=== PATIENT | female | born 1965 | race Hispanic/Latino ===

== ENCOUNTER 2018-10-09 13:04 | Inpatient (IN) | payer OTHER ==
[2018-10-09 15:27] LABS: BASO # 0.1 K/uL (0.0-0.2); BASO % 0.7 % (0.0-2.0); EOS # 0.2 K/uL (0.0-0.7); EOS % 1.6 % (0.0-4.0); HEMOGLOBIN 11.6 g/dL (12.0-16.0); LYMPH # 1.8 K/uL (1.0-4.3); LYMPH % 17.9 % (20.0-40.0); MEAN CELL VOLUME 85.5 fl (81.0-99.0); MEAN CORPUSCULAR HEMOGLOBIN 28.7 pg (27.0-31.0); MEAN CORPUSCULAR HGB CONC 33.5 g/dL (33.0-37.0); MEAN PLATELET VOLUME 11.5 fl (7.2-11.7); MONO # 0.9 K/uL (0.0-0.8); MONO % 8.9 % (0.0-10.0); NEUT # 7.2 K/uL (1.8-7.0); NEUT % 70.9 % (50.0-75.0); RBC 4.06 Mil/uL (3.80-5.20); RED CELL DISTRIBUTION WIDTH 12.6 % (11.5-14.5); WHITE BLOOD COUNT 10.2 K/uL (4.8-10.8)
[2018-10-09 15:32] LABS: BLOOD UREA NITROGEN 11 mg/dl (7-17); CALCIUM 8.8 mg/dL (8.4-10.2); GFR NON-AFRICAN AMERICAN > 60
--- NOTE | 2018-10-09 15:38 | ED PDOC ---
HPI: SOB/CHF/COPD <Bhumi Rae A - Last Filed: 10/09/18 15:38> <Alexandra Falcon - Last Filed: 10/09/18 18:54> Time Seen by Provider: 10/09/18 14:09 Chief Complaint (Nursing): Shortness Of Breath Past Medical History Vital Signs: Last Vital Signs Temp 98.5 F 10/09/18 13:14 Pulse 102 H 10/09/18 13:14 Resp 16 10/09/18 13:59 BP 111/73 10/09/18 13:14 Pulse Ox 98 10/09/18 13:59 <Bhumi Rae A - Last Filed: 10/09/18 15:38> Vital Signs: Last Vital Signs Temp 98.5 F 10/09/18 13:14 Pulse 102 H 10/09/18 13:14 Resp 16 10/09/18 13:59 BP 111/73 10/09/18 13:14 Pulse Ox 98 10/09/18 15:38 <Alexandra Falcon - Last Filed: 10/09/18 18:54> - Allergies Allergies/Adverse Reactions: Allergies Allergy/AdvReac Type Severity Reaction Status Date / Time chocolate flavor Allergy URTICARIA Verified 10/09/18 13:14 pineapple Allergy URTICARIA Verified 10/09/18 13:14 strawberry Allergy URTICARIA Verified 10/09/18 13:14 - Laboratory Results Result Diagrams: 10/09/18 15:11 10/09/18 15:11 - ECG O2 Sat by Pulse Oximetry: 98 <Bhumi Rae A - Last Filed: 10/09/18 15:38> - Laboratory Results Result Diagrams: 10/09/18 15:11 10/09/18 15:11 <Alexandra Falcon - Last Filed: 10/09/18 18:54> Medical Decision Making Medical Decision Making: Name: MADY PAINTER Exam Date: Oct 09, 2018 5:30:02 PM EST Modality Type: CT Description: CTA CHEST FOR PE Gender: F Laterality: Not applicable : 63 Referring Physician: Emergency Room direct number EXAM: CTA Chest with Intravenous Contrast for Pulmonary Embolism CLINICAL HISTORY: SOB difficulty breathing elevated d-d-debra TECHNIQUE: Axial CTA images of the chest with intravenous contrast using a pulmonary embolism protocol. Reconstructed images were created and reviewed. 316.18 mGy-cm CONTRAST: With; [id number] 90ML was administered without incident. COMPARISON: None provided. FINDINGS: PULMONARY ARTERIES No evidence of central or segmental pulmonary embolism is seen. AORTA There is no evidence for aneurysm or dissection of the thoracic aorta. LUNGS There are multiple bands of opacity within the mid and lower lungs bilaterally, consistent with atelectasis or scar. There is no definite sign of pneumonia. PLEURAL SPACES No pneumothorax evident. there is a small left pleural effusion and there is a minimal right pleural effusion HEART there is a moderate sized pericardial effusion. LYMPH NODES No lymphadenopathy is evident. BONES No focal osseous abnormality or acute fracture. UPPER ABDOMEN there are calcifications within the posterior liver dome that may be due to old granulomatous disease. IMPRESSION: 1. No definite sign of pulmonary embolism 2. Moderate sized pericardial effusion 3. Small left pleural effusion and minimal right pleural effusion 4. Multifocal pulmonary opacities, consistent with atelectasis or scar Electronically signed on Oct 09, 2018 6:10:19 PM EST by: Nolan Polanco M.D. Certified by [employer] Trained MRI Subspecialist <Alexandra aFlcon - Last Filed: 10/09/18 18:54> Disposition <Bhumi Rae - Last Filed: 10/09/18 15:38> - Disposition Disposition: Against Medical Advice Disposition Time: 18:00 <Alexandra Falcon - Last Filed: 10/09/18 18:54> - Clinical Impression Clinical Impression: Pericardial effusion, Pleural effusion, bilateral - Disposition Condition: UNKNOWN Additional Instructions: RETURN TO ER IMMEDIATELY FOR FURTHER MANAGEMENT Instructions: Leaving Against Medical Advice
[2018-10-09 15:42] LABS: B-TYPE NATRIURETIC PEPTIDE 138 pg/ml (0-900)
[2018-10-09] MEDS ORDERED: Sodium Chloride 0.9% 50 ML IV ONE (17:18)
[2018-10-09] MEDS ORDERED: Iodixanol 320 MG/ML 100 ML BOTTLE IV ONE (17:18)
--- NOTE | 2018-10-09 18:07 | RAD ---
Date of service: 10/09/2018 HISTORY: chest pain COMPARISON: No prior. TECHNIQUE: Chest PA and lateral FINDINGS: LUNGS: Linear scar/atelectasis right lower lobe. No acute infiltrate. PLEURA: No significant pleural effusion identified. No pneumothorax apparent. CARDIOVASCULAR: No aortic atherosclerotic calcification present. Normal cardiac size. No pulmonary vascular congestion. OSSEOUS STRUCTURES: No significant abnormalities. VISUALIZED UPPER ABDOMEN: Normal. OTHER FINDINGS: None. IMPRESSION: Right lower lobe linear scar/atelectasis. Otherwise unremarkable.
--- NOTE | 2018-10-09 20:24 | ED PDOC ---
- Laboratory Results Result Diagrams: 10/09/18 15:11 10/09/18 15:11 - ECG O2 Sat by Pulse Oximetry: 98 Disposition - Clinical Impression Clinical Impression: Pericardial effusion, Pleural effusion, bilateral - POA Present On Arrival: None - Disposition Disposition: Admitted as In-Patient Disposition Time: 20:00 Condition: FAIR
[2018-10-10 06:30] LABS: URIC ACID 3.8 mg/Dl (2.2-7.5)
--- NOTE | 2018-10-10 09:01 | CP.PCM.CON ---
History of Present Illness - History of Present Illness History of Present Illness: 53 YR OLD FEMALE WITH AN UNREMARKABLE PAST MEDICAL HISTORY WHO IS ADMITTED BECAUSE OF PROGRESSIVELY WORSENING SHORTNESS OF BREATH AND CHEST TIGHTNESS X SEVERAL DAYS,WORSE ON THE DAY OF ADMISSION.SHE INDICATES THAT SHE HAD SYMPTOMS OF URI ON AND OFF FOR SEVERAL WEEKS BUT IMPROVED WITHOUT THERAPY,ONLY TO WORSEN YESTERDAY.NO FEVER/CHILLS.SHE FEELS BETTER TODAY. CT SCAN OF CHEST-MODERATE PERICARDIAL EFFUSION AND ATELECTASIS WITH SMALL PLEURAL EFFUSION NON-SMOKER/DRUGS/ETOH USE. NO HX OF TB/TB EXPOSURE NO HX OF CHEMICAL EXPOSURE Past Patient History - Past Social History Smoking Status: Never Smoked - PSYCHIATRIC Hx Substance Use: No Meds Allergies/Adverse Reactions: Allergies Allergy/AdvReac Type Severity Reaction Status Date / Time chocolate flavor Allergy URTICARIA Verified 10/09/18 13:14 pineapple Allergy URTICARIA Verified 10/09/18 13:14 strawberry Allergy URTICARIA Verified 10/09/18 13:14 - Medications Medications: Current Medications Ketorolac Tromethamine (Toradol) 15 mg IVP Q6 PRN PRN Reason: Pain, moderate (4-7) Last Admin: 10/10/18 06:30 Dose: 15 mg Physical Exam - Constitutional Appears: No Acute Distress - Head Exam Head Exam: ATRAUMATIC, NORMAL INSPECTION, NORMOCEPHALIC - Eye Exam Eye Exam: EOMI, Normal appearance, PERRL Pupil Exam: NORMAL ACCOMODATION, PERRL - ENT Exam ENT Exam: Mucous Membranes Moist, Normal Exam - Neck Exam Neck exam: Positive for: Normal Inspection - Respiratory Exam Respiratory Exam: Clear to Auscultation Bilateral, NORMAL BREATHING PATTERN - Cardiovascular Exam Cardiovascular Exam: REGULAR RHYTHM - GI/Abdominal Exam GI & Abdominal Exam: Normal Bowel Sounds, Soft. absent: Tenderness - Rectal Exam Rectal Exam: NORMAL INSPECTION - Extremities Exam Extremities exam: Positive for: normal inspection - Back Exam Back exam: NORMAL INSPECTION - Neurological Exam Neurological exam: Alert, CN II-XII Intact, Normal Gait, Oriented x3, Reflexes Normal - Psychiatric Exam Psychiatric exam: Normal Affect, Normal Mood - Skin Skin Exam: Dry, Intact, Normal Color, Warm Results - Vital Signs Recent Vital Signs: Last Vital Signs Temp 99.9 F H 10/10/18 08:23 Pulse 103 H 10/10/18 08:23 Resp 18 10/10/18 08:23 BP 103/61 10/10/18 08:23 Pulse Ox 97 10/10/18 08:23 - Labs Result Diagrams: 10/09/18 15:11 10/09/18 15:11 Labs: Laboratory Results - last 24 hr 10/09/18 10/09/18 10/09/18 15:11 15:11 15:55 WBC 10.2 RBC 4.06 Hgb 11.6 L Hct 34.7 MCV 85.5 MCH 28.7 MCHC 33.5 RDW 12.6 Plt Count 317 MPV 11.5 Neut % (Auto) 70.9 Lymph % (Auto) 17.9 L [place] % (Auto) 8.9 Eos % (Auto) 1.6 Baso % (Auto) 0.7 Neut # (Auto) 7.2 H Lymph # (Auto) 1.8 [place] # (Auto) 0.9 H Eos # (Auto) 0.2 Baso # (Auto) 0.1 ESR D-Dimer, Quantitative 4128 H Sodium 138 Potassium 4.0 Chloride 102 Carbon Dioxide 28 Anion Gap 12 BUN 11 Creatinine 0.6 L Est GFR ( Amer) > 60 Est GFR (Non-Af Amer) > 60 Random Glucose 115 H Uric Acid Calcium 8.8 Troponin I < 0.0120 NT-Pro-B Natriuret Pep 138 Alpha Fetoprotein Carcinoembryonic Ag TSH 3rd Generation 10/09/18 10/09/18 10/10/18 23:19 23:19 05:45 WBC RBC Hgb Hct MCV MCH MCHC RDW Plt Count MPV Neut % (Auto) Lymph % (Auto) Banner % (Auto) Eos % (Auto) Baso % (Auto) Neut # (Auto) Lymph # (Auto) [place] # (Auto) Eos # (Auto) Baso # (Auto) ESR 91 H 88 H D-Dimer, Quantitative Sodium Potassium Chloride Carbon Dioxide Anion Gap BUN Creatinine Est GFR ( Amer) Est GFR (Non-Af Amer) Random Glucose Uric Acid Calcium Troponin I < 0.0120 NT-Pro-B Natriuret Pep Alpha Fetoprotein Carcinoembryonic Ag TSH 3rd Generation 10/10/18 10/10/18 05:45 05:45 WBC RBC Hgb Hct MCV MCH MCHC RDW Plt Count MPV Neut % (Auto) Lymph % (Auto) [place]anner % (Auto) Eos % (Auto) Baso % (Auto) Neut # (Auto) Lymph # (Auto) [place]anner # (Auto) Eos # (Auto) Baso # (Auto) ESR D-Dimer, Quantitative Sodium Potassium Chloride Carbon Dioxide Anion Gap BUN Creatinine Est GFR ( Amer) Est GFR (Non-Af Amer) Random Glucose Uric Acid 3.8 Calcium Troponin I NT-Pro-B Natriuret Pep Alpha Fetoprotein 0.9 Carcinoembryonic Ag 1.0 TSH 3rd Generation 2.22 Assessment & Plan - Assessment and Plan (Free Text) Assessment: PERICARDIAL EFFUSION WITH PLEURAL REACTION PROBABLY DUE TO PERICARDITIS[?VIRAL]--R/O OTHER ETIOLOGIES Plan: SUGGEST CARDIOLOGY EVALUATION FOR APPROPRIATE RX - Date & Time Date: 10/10/18 Time: 09:04
--- NOTE | 2018-10-10 09:32 | CARD ---
APPROVED REPORT Date of service: 10/10/2018 EXAM: Two-dimensional and M-mode echocardiogram with Doppler and color Doppler. Other Information Quality : GoodRhythm : NSR INDICATION Pericardial Effusion Pleural Effusion 2D DIMENSIONS IVSd0.95 (0.7-1.1cm)LVDd4.02 (3.9-5.9cm) LVOT Diameter1.79 (1.8-2.4cm)PWd1.09 (0.7-1.1cm) IVSs1.37 (0.8-1.2cm)LVDs2.24 (2.5-4.0cm) FS (%) 44.3 %PWs1.49 (0.8-1.2cm) M-Mode DIMENSIONS Left Atrium (MM)4.74 (2.5-4.0cm)IVSd0.97 (0.7-1.1cm) Aortic Root2.15 (2.2-3.7cm)LVDd4.68 (4.0-5.6cm) Aortic Cusp Exc.1.59 (1.5-2.0cm)PWd0.74 (0.7-1.1cm) IVSs1.24 cmFS (%) 50 % LVDs2.35 (2.0-3.8cm)PWs1.56 cm Aortic Valve AoV Peak Sjwtmwtl187.4cm/sAoV VTI26.5cmAO Peak GR.7mmHg LVOT Peak Ampyxjvo705.9cm/sLVOT VTI20.69cmAO Mean GR.4mmHg JUDITH (VMAX)1.70jo1CMY (VTI)1.10cm2 Mitral Valve MV E Pdaocxam41.3cm/sMV DECEL QKBC208sbAF A Snjhwadx05.0cm/s MV QPQ44tiL/A ratio0.7MVA (PHT)6.78cm2 TDI Lateral E' Peak V8.72cm/sMedial E' Peak V10.02cm/sE/Lateral E'7.0 E/Medial E'6.1 LEFT VENTRICLE The left ventricle is normal size. There is normal left ventricular wall thickness. The left ventricular function is normal. LVEF is 60-65%. There is normal LV segmental wall motion. Transmitral Doppler flow pattern is Grade I-abnormal relaxation pattern. RIGHT VENTRICLE The right ventricle is normal size. No RV free wall compression seen durong diastole. The right ventricular systolic function is normal. ATRIA The left atrium size is normal. The right atrium size is normal. No RA free wall collapse seen during diastole. AORTIC VALVE The aortic valve is normal in structure. No aortic regurgitation is present. There is no aortic valvular stenosis. MITRAL VALVE The mitral valve is normal in structure. There is no evidence of mitral valve prolapse. There is no mitral valve stenosis. There is no mitral valve regurgitation noted. TRICUSPID VALVE The tricuspid valve is normal in structure. There is no tricuspid valve regurgitation noted. PULMONIC VALVE The pulmonary valve is normal in structure. There is no pulmonic valvular regurgitation. GREAT VESSELS The aortic root is normal in size. The IVC is normal in size and collapses >50% with inspiration. PERICARDIAL EFFUSION A Mild to moderate quantity of pericardial fluid was seen <Conclusion> The left ventricle is normal size. There is normal left ventricular wall thickness. There is normal LV segmental wall motion. The left ventricular function is normal. LVEF is 60-65%. Transmitral Doppler flow pattern is Grade I-abnormal relaxation pattern. No RV free wall compression seen durong diastole. The IVC is normal in size and collapses >50% with inspiration. A Mild to moderate quantity of pericardial fluid collection was seen No echocardiographic evidence of cardiac temponade seen Clinical correlation is strongly recommended.
--- NOTE | 2018-10-10 10:19 | CT ---
Date of service: 10/09/2018 PROCEDURE: CT Chest with contrast (Pulmonary Angiogram) HISTORY: shortness of breath elevated D-dimer COMPARISON: Chest radiographs from 10/09/2018. TECHNIQUE: Axial computed tomography images were obtained of the chest in the pulmonary arterial phase of enhancement. Coronal and sagittal reformatted images were created and reviewed. Intravenous contrast dose: 90 mL Visipaque 320 Radiation dose: Total exam DLP = 316.17 mGy-cm. This CT exam was performed using one or more of the following dose reduction techniques: Automated exposure control, adjustment of the mA and/or kV according to patient size, and/or use of iterative reconstruction technique. FINDINGS: PULMONARY ARTERIES: There are no filling defects in the pulmonary arteries to suggest acute pulmonary embolism. AORTA: No acute findings. No thoracic aortic aneurysm. No aortic atherosclerotic calcification or mural plaque present. LUNGS: The lungs are well inflated. There is multifocal subsegmental atelectasis in the left. No nodule, mass or pulmonary consolidation. PLEURAL SPACES: Small effusions, larger on the left no pneumothorax. There are calcified right basilar pleural plaques. HEART: Moderate cardiomegaly. Moderate significant pericardial effusion. LYMPH NODES: No pathologic mediastinal or hilar lymphadenopathy. BONES, CHEST WALL: Within normal limits for the patient's age. No fracture or destructive lesion OTHER FINDINGS: None. IMPRESSION: 1. No CTA evidence for acute pulmonary embolism. 2. Moderate pericardial effusion. 3. Small pleural effusions, larger on the left. A preliminary report was provided by [employer].
--- NOTE | 2018-10-10 10:35 | CP.PCM.CON ---
History of Present Illness - History of Present Illness History of Present Illness: tthis 54-year-old otherwise well female came to the emergency room on experiencing chest pain on taking a deep breath or movements of upper torso or turning in bed or bending down. This started couple of weeks back when she experienced sharp chest pain while walking in [facility] which gradually subsided. Patient has had vague symptoms such as URI for last couple of weeks which did not hamper her physical activities. Yesterday the chest discomfort returned and was quite pronounced and the patient came to the emergency room. The patient denies on repeated questioning if physical activities made her short of breath. She denies any orthopnea as well as. She was not on any medications except some pills that she to for weight loss 6 months back. There is no significant past or family history. There is no history of weight loss or rashes or arthritis. Physical examination shows a middle aged pleasant female who is quite anxious and being hospitalized. She can lie down flat and can carry on a conversation. She was afebrile with a pulse rate of 96 bpm regular and a blood pressure of 124/74 mmHg. There was no pulsus paradoxus. her extremities were warm and her nailbeds were pink.Her jugular venous pressure was not elevated and there was no edema over her lower extremities. The pedal pulses were well felt. The apex was not palpable the first and second heart sounds were normal. Her was no murmur or gallop there was no pericardial rub. Abdomen was soft liver and spleen were not palpable. Her electrocardiogram showed sinus rhythm with small QRS morphology. No ST-T abnormalities were detected. Echocardiogram showed evidence of mild to moderate amount of pericardial effusion with no evidence of right ventricular collapse or compression.her lab data was noted. Impression: pericardial effusion most likely of a viral origin. No evidence of cardiac temponade. I started the patient on a non-steroidal anti-inflammation drugs. Workup for connective tissue disorder was ordered. If the patient remains hemodynamically stable she may be allowed to return home to follow-up as an outpatient with her own physician. Past Patient History - Past Social History Smoking Status: Never Smoked - CARDIAC Hx Cardiac Disorders: No - PULMONARY Hx Respiratory Disorders: No - NEUROLOGICAL Hx Neurological Disorder: No - HEENT Hx HEENT Problems: No - RENAL Hx Chronic Kidney Disease: No - ENDOCRINE/METABOLIC Hx Endocrine Disorders: No - HEMATOLOGICAL/ONCOLOGICAL Hx Blood Disorders: No - INTEGUMENTARY Hx Dermatological Problems: No - MUSCULOSKELETAL/RHEUMATOLOGICAL Hx Musculoskeletal Disorders: No - GENITOURINARY/GYNECOLOGICAL Hx Genitourinary Disorders: No - PSYCHIATRIC Hx Psychophysiologic Disorder: No Meds Allergies/Adverse Reactions: Allergies Allergy/AdvReac Type Severity Reaction Status Date / Time chocolate flavor Allergy URTICARIA Verified 10/09/18 13:14 pineapple Allergy URTICARIA Verified 10/09/18 13:14 strawberry Allergy URTICARIA Verified 10/09/18 13:14 - Medications Medications: Current Medications Ibuprofen (Motrin Tab) 600 mg PO Q8 LAKISHA Results - Vital Signs Recent Vital Signs: Last Vital Signs Temp 98.6 F 10/10/18 09:43 Pulse 106 H 10/10/18 09:43 Resp 18 10/10/18 09:43 BP 106/66 10/10/18 09:43 Pulse Ox 98 10/10/18 09:43 - Labs Result Diagrams: 10/09/18 15:11 10/09/18 15:11 Labs: Laboratory Results - last 24 hr 10/09/18 10/09/18 10/09/18 15:11 15:11 15:55 WBC 10.2 RBC 4.06 Hgb 11.6 L Hct 34.7 MCV 85.5 MCH 28.7 MCHC 33.5 RDW 12.6 Plt Count 317 MPV 11.5 Neut % (Auto) 70.9 Lymph % (Auto) 17.9 L [place] % (Auto) 8.9 Eos % (Auto) 1.6 Baso % (Auto) 0.7 Neut # (Auto) 7.2 H Lymph # (Auto) 1.8 [place] # (Auto) 0.9 H Eos # (Auto) 0.2 Baso # (Auto) 0.1 ESR D-Dimer, Quantitative 4128 H Sodium 138 Potassium 4.0 Chloride 102 Carbon Dioxide 28 Anion Gap 12 BUN 11 Creatinine 0.6 L Est GFR ( Amer) > 60 Est GFR (Non-Af Amer) > 60 Random Glucose 115 H Uric Acid Calcium 8.8 Troponin I < 0.0120 NT-Pro-B Natriuret Pep 138 Alpha Fetoprotein Carcinoembryonic Ag TSH 3rd Generation 10/09/18 10/09/18 10/10/18 23:19 23:19 05:45 WBC RBC Hgb Hct MCV MCH MCHC RDW Plt Count MPV Neut % (Auto) Lymph % (Auto) [place] % (Auto) Eos % (Auto) Baso % (Auto) Neut # (Auto) Lymph # (Auto) [place] # (Auto) Eos # (Auto) Baso # (Auto) ESR 91 H 88 H D-Dimer, Quantitative Sodium Potassium Chloride Carbon Dioxide Anion Gap BUN Creatinine Est GFR ( Amer) Est GFR (Non-Af Amer) Random Glucose Uric Acid Calcium Troponin I < 0.0120 NT-Pro-B Natriuret Pep Alpha Fetoprotein Carcinoembryonic Ag TSH 3rd Generation 10/10/18 10/10/18 05:45 05:45 WBC RBC Hgb Hct MCV MCH MCHC RDW Plt Count MPV Neut % (Auto) Lymph % (Auto) [place] % (Auto) Eos % (Auto) Baso % (Auto) Neut # (Auto) Lymph # (Auto) [place] # (Auto) Eos # (Auto) Baso # (Auto) ESR D-Dimer, Quantitative Sodium Potassium Chloride Carbon Dioxide Anion Gap BUN Creatinine Est GFR ( Amer) Est GFR (Non-Af Amer) Random Glucose Uric Acid 3.8 Calcium Troponin I NT-Pro-B Natriuret Pep Alpha Fetoprotein 0.9 Carcinoembryonic Ag 1.0 TSH 3rd Generation 2.22
[2018-10-10] MEDS: guaiFENesin 200 mg/10 ml Syrup UD PO PRN (12:16)
--- NOTE | 2018-10-10 16:11 | CP.PCM.HP ---
History of Present Illness - History of Present Illness History of Present Illness: CC: Worsening SOB and Chest Pain History of Present Illness: A 54-year-old female came to the emergency room on with Progressively worsened Dyspnea associated with Left sided chest pain on taking a deep breath or movements of upper body or bending down. This started couple of weeks back when she experienced sharp chest pain while walking in [facility] which gradually subsided. Patient has had vague symptoms such as URI for last couple of weeks which did not hamper her physical activities. Yesterday the chest discomfort returned and was quite pronounced and the patient came to the emergency room. She was not on any medications except some pills that she to for weight loss 6 months back. There is no significant past or family history. Denies cough, fever or chills. CT Chest in the ER showed Moderate Pericardial and Mild B/L Pleural Effusion. Present on Admission - Present on Admission Any Indicators Present on Admission: No Review of Systems - Review of Systems All systems: reviewed and no additional remarkable complaints except Review of Systems: as per HPI Past Patient History - Past Medical History & Family History Past Medical History?: No Past Family History: Reviewed and not pertinent - Past Social History Smoking Status: Never Smoked Alcohol: Social Drugs: Cannabis - CARDIAC Hx Cardiac Disorders: No - PULMONARY Hx Respiratory Disorders: No - NEUROLOGICAL Hx Neurological Disorder: No - HEENT Hx HEENT Problems: No - RENAL Hx Chronic Kidney Disease: No - ENDOCRINE/METABOLIC Hx Endocrine Disorders: No - HEMATOLOGICAL/ONCOLOGICAL Hx Blood Disorders: No - INTEGUMENTARY Hx Dermatological Problems: No - MUSCULOSKELETAL/RHEUMATOLOGICAL Hx Musculoskeletal Disorders: No - GASTROINTESTINAL Hx Gastrointestinal Disorders: No - GENITOURINARY/GYNECOLOGICAL Hx Genitourinary Disorders: No - PSYCHIATRIC Hx Psychophysiologic Disorder: No - SURGICAL HISTORY Hx Surgeries: No - ANESTHESIA Hx Anesthesia: No Hx Anesthesia Reactions: No Hx Malignant Hyperthermia: No Has any member of the family had a problem w/ anesthesia?: No Meds Home Medications: Home Medication List Medication Instructions Recorded Confirmed Type Naproxen 500 mg PO BID #20 tab 10/13/18 Rx Pantoprazole Sodium [Protonix] 40 mg PO DAILY #30 ect 10/13/18 Rx Allergies/Adverse Reactions: Allergies Allergy/AdvReac Type Severity Reaction Status Date / Time chocolate flavor Allergy URTICARIA Verified 10/09/18 13:14 pineapple Allergy URTICARIA Verified 10/09/18 13:14 strawberry Allergy URTICARIA Verified 10/09/18 13:14 Results - Vital Signs Recent Vital Signs: Last Vital Signs Temp 98.0 F 10/10/18 16:01 Pulse 90 10/10/18 16:01 Resp 17 10/10/18 16:01 BP 115/75 10/10/18 16:01 Pulse Ox 97 10/10/18 16:01 - Labs Result Diagrams: 10/09/18 15:11 10/09/18 15:11 Labs: Laboratory Results - last 24 hr 10/09/18 10/09/18 10/09/18 15:55 23:19 23:19 ESR 91 H D-Dimer, Quantitative 4128 H Uric Acid Troponin I < 0.0120 C-Reactive Protein Alpha Fetoprotein Carcinoembryonic Ag CA 19-9 Antigen CA 125 Antigen TSH 3rd Generation 10/10/18 10/10/18 10/10/18 05:45 05:45 05:45 ESR 88 H D-Dimer, Quantitative Uric Acid 3.8 Troponin I C-Reactive Protein 183.80 H Alpha Fetoprotein 0.9 Carcinoembryonic Ag 1.0 CA 19-9 Antigen 4.5 CA 125 Antigen 60.6 H TSH 3rd Generation 2.22 - EKG Data EKG shows normal: Sinus rhythm Rate: Tachycardia - Imaging and Cardiology CT scan - chest Status: Report reviewed by me Additional comment: Date of service: 10/09/2018 PROCEDURE: CT Chest with contrast (Pulmonary Angiogram) HISTORY: shortness of breath elevated D-dimer COMPARISON: Chest radiographs from 10/09/2018. TECHNIQUE: Axial computed tomography images were obtained of the chest in the pulmonary arterial phase of enhancement. Coronal and sagittal reformatted images were created and reviewed. Intravenous contrast dose: 90 mL Visipaque 320 Radiation dose: Total exam DLP = 316.17 mGy-cm. This CT exam was performed using one or more of the following dose reduction techniques: Automated exposure control, adjustment of the mA and/or kV according to patient size, and/or use of iterative reconstruction technique. FINDINGS: PULMONARY ARTERIES: There are no filling defects in the pulmonary arteries to suggest acute pulmonary embolism. AORTA: No acute findings. No thoracic aortic aneurysm. No aortic atherosclerotic calcification or mural plaque present. LUNGS: The lungs are well inflated. There is multifocal subsegmental atelectasis in the left. No nodule, mass or pulmonary consolidation. PLEURAL SPACES: Small effusions, larger on the left no pneumothorax. There are calcified right basilar pleural plaques. HEART: Moderate cardiomegaly. Moderate significant pericardial effusion. LYMPH NODES: No pathologic mediastinal or hilar lymphadenopathy. BONES, CHEST WALL: Within normal limits for the patient's age. No fracture or destructive lesion OTHER FINDINGS: None. IMPRESSION: 1. No CTA evidence for acute pulmonary embolism. 2. Moderate pericardial effusion. 3. Small pleural effusions, larger on the left. Chest x-ray Status: Report reviewed by me Additional comment: Date of service: 10/09/2018 HISTORY: chest pain COMPARISON: No prior. TECHNIQUE: Chest PA and lateral FINDINGS: LUNGS: Linear scar/atelectasis right lower lobe. No acute infiltrate. PLEURA: No significant pleural effusion identified. No pneumothorax apparent. CARDIOVASCULAR: No aortic atherosclerotic calcification present. Normal cardiac size. No pulmonary vascular congestion. OSSEOUS STRUCTURES: No significant abnormalities. VISUALIZED UPPER ABDOMEN: Normal. OTHER FINDINGS: None. IMPRESSION: Right lower lobe linear scar/atelectasis. Otherwise unremarkable. Assessment & Plan (1) Pleuritic chest pain Status: Acute Priority: High (2) Dyspnea Status: Acute Priority: High (3) Pericardial effusion Status: Acute Priority: High (4) Pleural effusion, bilateral Status: Acute Priority: High - Assessment and Plan (Free Text) Assessment: R/o Autoimmune Disease 2L O2 Via NC Toradol 15mg IV Q6hrs ESR, CRP RAI, RF, Tumor Marker, C3/C4 Levels, TTE Cardiology and Pulmonary Consult
--- NOTE | 2018-10-11 00:54 | CARD ---
APPROVED REPORT Date of service: 10/09/2018 EKG Measurement Heart [id number] <Conclusion> Sinus tachycardia Possible Left atrial enlargement Low voltage QRS Nonspecific T wave abnormality Abnormal ECG
--- NOTE | 2018-10-11 08:21 | CP.PCM.PN ---
Subjective - Date & Time of Evaluation Date of Evaluation: 10/11/18 Time of Evaluation: 08:22 - Subjective Subjective: C/O CHEST PAIN THIS AM MILD SOB ON EXERTION SYMPTOMS IMPROVING WITH MOTRIN RX Objective - Vital Signs/Intake and Output Vital Signs (last 24 hours): Temp Pulse Resp BP Pulse Ox 98.8 F 98 H 18 99/65 L 95 10/11/18 05:27 10/11/18 05:27 10/11/18 05:27 10/11/18 05:27 10/11/18 05:27 - Medications Medications: Current Medications Guaifenesin (Robitussin) 200 mg PO Q6 PRN PRN Reason: Cough Last Admin: 10/10/18 12:16 Dose: 200 mg Ibuprofen (Motrin Tab) 600 mg PO Q8 LAKISHA Last Admin: 10/11/18 00:03 Dose: 600 mg Ibuprofen (Motrin Tab) 600 mg PO STAT STA Stop: 10/11/18 08:18 - Labs Labs: 10/09/18 15:11 10/09/18 15:11 - Constitutional Appears: In Acute Distress - Head Exam Head Exam: ATRAUMATIC, NORMAL INSPECTION, NORMOCEPHALIC - Eye Exam Eye Exam: EOMI, Normal appearance, PERRL Pupil Exam: NORMAL ACCOMODATION, PERRL - ENT Exam ENT Exam: Mucous Membranes Moist, Normal Exam - Neck Exam Neck Exam: Full ROM, Normal Inspection. absent: Lymphadenopathy - Respiratory Exam Respiratory Exam: Rales, NORMAL BREATHING PATTERN - Cardiovascular Exam Cardiovascular Exam: REGULAR RHYTHM, +S1, +S2. absent: Murmur - GI/Abdominal Exam GI & Abdominal Exam: Soft, Normal Bowel Sounds. absent: Tenderness - Rectal Exam Rectal Exam: NORMAL INSPECTION - Extremities Exam Extremities Exam: Full ROM, Normal Capillary Refill, Normal Inspection. absent: Joint Swelling, Pedal Edema - Back Exam Back Exam: NORMAL INSPECTION - Neurological Exam Neurological Exam: Alert, Awake, CN II-XII Intact, Normal Gait, Oriented x3 - Psychiatric Exam Psychiatric exam: Normal Affect, Normal Mood - Skin Skin Exam: Dry, Intact, Normal Color, Warm Assessment and Plan - Assessment and Plan (Free Text) Assessment: ACUTE PERICARDITIS--PROBABLY VIRAL SMALL BILATERAL PLEURAL RXN PROBABLY DUE TO PERICARDITIS Plan: NO FURTHER PULMONARY INTERVENTION FOR NOW WILL SIGN OFF CASE AND SEE AGAIN AT YOUR REQUEST
--- NOTE | 2018-10-11 09:40 | CP.PCM.PN ---
Subjective - Date & Time of Evaluation Date of Evaluation: 10/11/18 Time of Evaluation: 09:00 - Subjective Subjective: tthe patient reports that bending down and or movements of the upper torso causes of chest pain while sitting up in a chair she is quite pain free. The patient denies any chills or fever and has remained afebrile. Telemetry shows sinus rhythm at physiological rates. Her blood pressure was 114/70 mmHg. her respiratory rate was 14-16 breaths per minute and she could carry on a conversation. There was no pericardial rub. Her jugular venous pressure was not elevated. Her extremities were warm and nailbeds were pink. the patient is stable from cardiac vascular point of view to return home. I have explained the need for non-steroidal anti-inflammatory drugs. The patient has already made an appointment with her primary care physician for a follow-up visit. I have explained to the patient that she needs to go to the emergency room urgently if she finds herself short of breath. Objective - Vital Signs/Intake and Output Vital Signs (last 24 hours): Temp Pulse Resp BP Pulse Ox 99.3 F 111 H 18 103/66 94 L 10/11/18 08:19 10/11/18 08:19 10/11/18 08:19 10/11/18 08:19 10/11/18 08:19 - Medications Medications: Current Medications Famotidine (Pepcid) 20 mg PO BID LAKISHA Guaifenesin (Robitussin) 200 mg PO Q6 PRN PRN Reason: Cough Last Admin: 10/10/18 12:16 Dose: 200 mg Ibuprofen (Motrin Tab) 600 mg PO Q8 LAKISHA Last Admin: 10/11/18 08:19 Dose: 600 mg - Labs Labs: 10/09/18 15:11 10/09/18 15:11
--- NOTE | 2018-10-11 11:28 | US ---
Date of service: 10/11/2018 HISTORY: Left Ovarian Cyst and high CA 125 COMPARISON: None available. TECHNIQUE: Transvaginal pelvic ultrasound was performed. FINDINGS: UTERUS: Measures 12.8 x 11.5 x 9.7 cm. Anteverted and enlarged. There is a 6.3 x 5.6 x 6.0 cm echogenic mass with irregular borders in the fundus. There is no significant vascularity on color flow imaging. There is a 5.1 x 4.5 x 4.4 cm anterior wall fibroid on the right and 5.0 x 4.7 x 4.9 cm anterior wall fibroid on the left. ENDOMETRIUM: Obscured by multiple fibroids. CERVIX: No cervical abnormality identified. RIGHT OVARY: Not visualized. LEFT OVARY: Measures 5.6 x 4.6 x 3.0 cm. Enlarged and heterogeneous. Normal flow. FREE FLUID: No significant free fluid noted. OTHER FINDINGS: None. IMPRESSION: 1. Enlarged fibroid uterus. 2. 6.3 x 5.6 x 6.0 cm mass with irregular borders and central echogenicity in the fundus may represent a calcifying fibroid however myometrial neoplasm cannot be entirely excluded. 3. Enlarged heterogeneous left ovary. Underlying ovarian neoplasm cannot be excluded on ultrasound. Given history of rising CA 125 and indeterminate mass in the fundus of the uterus, MRI of the pelvis without and with intravenous contrast is recommended for further evaluation.
[2018-10-11] MEDS ORDERED: Sodium Chloride 0.9% 50 ML IV ONE (15:44)
[2018-10-11] MEDS ORDERED: Gadodiamide 287 MG/ML VIAL (15ML) IV ONE (15:44)
[2018-10-11] MEDS: guaiFENesin 200 mg/10 ml Syrup UD PO PRN (17:44)
--- NOTE | 2018-10-11 17:51 | CARD ---
APPROVED REPORT Date of service: 10/10/2018 EKG Measurement Heart [id number] <Conclusion> Sinus tachycardia Possible Left atrial enlargement Low voltage QRS Nonspecific T wave abnormality Abnormal ECG
--- NOTE | 2018-10-11 18:23 | MRI ---
MRI abdomen without IV contrast Indication: r/o sarcoma vs. peritoneal dz, hx prior MRI 11/02 Technique: Multiplanar, multi sequence magnetic resonance images of the abdomen were obtained without the administration of IV gadolinium as the patient declined. A total of 458 images submitted for review Comparison: CTA chest performed 10/09/18 Findings: Numerous T2 hyperintense foci within the liver, largest at the right inferior lobe measuring 11 mm; all several of these are too small to characterize larger foci cannot be definitively characterize due to absence of IV contrast. Coarse calcifications evident at the hepatic dome seen to better advantage on included portions of the upper abdomen CTA performed 10/09/18 Contracted state of gallbladder limits evaluation. The noncontrast spleen, pancreas, kidneys, and adrenal glands appear grossly unremarkable. No bulky adenopathy appreciated. Partially included uterus demonstrates lobulated abnormal appearance with suspected uterine masses. Please refer to pelvic MRI for more detailed discussion. Limited views of the inferior thorax appear unremarkable. Moderate sized pericardial effusion. Small left and trace right pleural effusions and associated lower lobe consolidations. Impression: Partially imaged moderate size pericardial effusion. Small left and trace right pleural effusions and associated lower lobe consolidations. The patient declined IV contrast which limits evaluation significantly. Numerous T2 hyperintense foci are noted within the liver, several of which are too small to characterize. Largest hyperintense focus noted at the inferior right hepatic lobe measuring approximately 11 mm. Cyst is suspected however due to lack of IV contrast this cannot be definitively characterized. Coarse calcifications evident at the hepatic dome seen to better advantage on included portions of the upper abdomen CTA performed 10/09/18 Partially included uterus demonstrates lobulated abnormal appearance with suspected uterine masses. Please refer to pelvic MRI for more detailed discussion.
--- NOTE | 2018-10-11 23:33 | ED PDOC ---
HPI: Chest Pain Time Seen by Provider: 10/09/18 14:09 Chief Complaint (Nursing): Shortness Of Breath History Per: Patient History/Exam Limitations: no limitations Onset/Duration Of Symptoms: Days (2) Current Symptoms Are (Timing): Still Present Severity: Moderate Pain Scale Rating Of: 4 Quality: Dull Associated Symptoms: denies: Nausea, Dyspnea, Diaphoresis, Syncope Modifying Factors: None Exacerbating Factors: None - Risk Factors PE Risk Factors: Neg: Extremity Immobilization/Fx, Recent Hospitalization, Active Cancer, Previous DVT, Previous PE, CHF Past Medical History Reviewed: Historical Data, Nursing Documentation, Vital Signs Vital Signs: Last Vital Signs Temp 101.9 F H 10/11/18 21:30 Pulse 115 H 10/11/18 21:00 Resp 18 10/11/18 19:19 BP 132/72 10/11/18 19:19 Pulse Ox 93 L 10/11/18 19:19 - Medical History PMH: No Chronic Diseases Denies: Chronic Kidney Disease - Surgical History Surgical History: No Surg Hx - Family History Family History: States: No Known Family Hx - Home Medications Home Medications: Ambulatory Orders Medication Instructions Recorded No Known Home Med 10/09/18 - Allergies Allergies/Adverse Reactions: Allergies Allergy/AdvReac Type Severity Reaction Status Date / Time chocolate flavor Allergy URTICARIA Verified 10/09/18 13:14 pineapple Allergy URTICARIA Verified 10/09/18 13:14 strawberry Allergy URTICARIA Verified 10/09/18 13:14 GISSEL Risk Score for UA/NSTEMI - GISSEL Risk Score Age > 64: NO 3 or more CAD Risk Factors: NO Known CAD (Stenosis greater than 50%): NO Aspirin use in past 7 days: NO Severe Angina: NO EKG ST changes greater than 0.5mm: NO Positive Cardiac Marker: NO GISSEL Score: 0 Risk %: 5% Wells Criteria for PE - Wells Criteria for Pulmonary Embolism Clinical Signs and Symptoms of DVT: No P.E is #1 Diagnosis, or Equally Likely: Yes Heart Rate >100: No Immobilization at least 3 days;Surgery previous 4 weeks: No Previous, objectively diagnosed PE or DVT: No Hemoptysis: No Malignancy w/treatment within 6 months, or palliative: No Total Score: 1 Review of Systems ROS Statement: Except As Marked, All Systems Reviewed And Found Negative Physical Exam - Reviewed Nursing Documentation Reviewed: Yes Vital Signs Reviewed: Yes - Physical Exam Appears: Positive for: No Acute Distress, Uncomfortable Head Exam: Positive for: ATRAUMATIC, NORMAL INSPECTION Skin: Positive for: Warm, Dry Eye Exam: Positive for: EOMI Neck: Positive for: Painless ROM Cardiovascular/Chest: Positive for: Regular Rate, Rhythm. Negative for: Edema Respiratory: Positive for: Normal Breath Sounds. Negative for: Respiratory Distress Gastrointestinal/Abdominal: Positive for: Soft. Negative for: Tenderness Extremity: Positive for: Normal ROM Neurologic/Psych: Positive for: Alert, Oriented - Laboratory Results Result Diagrams: 10/09/18 15:11 10/09/18 15:11 - ECG O2 Sat by Pulse Oximetry: 93 Medical Decision Making Medical Decision Making: Impression Dyspnea Diff include PE, CHF, ACS,pneumonia PLan CBC BMP trop ddimer bnp CXR EKG CT chest Reassess Disposition - Clinical Impression Clinical Impression: Pericardial effusion, Pleural effusion, bilateral - Patient ED Disposition Is Patient to be Admitted: Transfer of Care Counseled Patient/Family Regarding: Studies Performed, Diagnosis - Disposition Disposition: Transfer of Care Disposition Time: 15:00 Condition: STABLE Patient Signed Over To: Alexandra Falcon
[2018-10-12 06:26] LABS: AMYLASE 56 U/L (30-110); LIPASE 34 U/L (23-300)
[2018-10-12] MEDS: guaiFENesin 200 mg/10 ml Syrup UD PO PRN (09:06)
--- NOTE | 2018-10-12 13:07 | CP.PCM.PN ---
Subjective - Date & Time of Evaluation Date of Evaluation: 10/12/18 Time of Evaluation: 13:07 - Subjective Subjective: CHEST PAIN APPEARS TO BE CONTROOLED BY NSAIDS NO SOB LEAD APPLICATION ARCHITECT EVAL IN PROGRESS NO FURTHER PULMONARY INTERVENTION FOR NOW Objective - Vital Signs/Intake and Output Vital Signs (last 24 hours): Temp Pulse Resp BP Pulse Ox 100.3 F H 115 H 18 118/77 93 L 10/12/18 12:00 10/12/18 12:00 10/12/18 12:00 10/12/18 12:00 10/12/18 12:00 - Medications Medications: Current Medications Acetaminophen (Tylenol 325mg Tab) 650 mg PO Q6 PRN PRN Reason: Pain, Mild (1-3) Last Admin: 10/12/18 04:15 Dose: 650 mg Acetaminophen (Tylenol 325mg Tab) 650 mg PO Q6 PRN PRN Reason: Fever >100.4 F Last Admin: 10/11/18 20:30 Dose: 650 mg Famotidine (Pepcid) 20 mg PO BID [facility] Last Admin: 10/12/18 08:58 Dose: 20 mg Guaifenesin (Robitussin) 200 mg PO Q6 PRN PRN Reason: Cough Last Admin: 10/12/18 09:06 Dose: 200 mg Ibuprofen (Motrin Tab) 600 mg PO Q8 LAKISHA Last Admin: 10/12/18 09:21 Dose: Not Given Ketorolac Tromethamine (Toradol) 15 mg IVP Q6 PRN PRN Reason: Pain, moderate (4-7) Last Admin: 10/12/18 08:56 Dose: 15 mg - Labs Labs: 10/09/18 15:11 10/09/18 15:11
--- NOTE | 2018-10-12 13:39 | MRI ---
Date of service: 10/11/2018 PROCEDURE: MRI pelvis without contrast HISTORY: r/o sarcoma vs peritoneal dz COMPARISON: Comparison is made with the previous ultrasound of the pelvis dated 10/11/2018 TECHNIQUE: Multiplanar, multi sequence MR images of the pelvis were obtained. No intravenous gadolinium contrast was administered. FINDINGS: UTERUS: Myometrium: Heterogeneous myometrium contains multiple large mass lesion likely represent leiomyomas. Endometrium: The endometrial stripe is not clearly visualized due to severe distortion of the uterine by large presumed fibroids. The distal portion of the endometrial stripe measures 0.5 centimeter in thickness. Junctional zone: Not clearly visualized. Cervix: There is a small cyst seen at uterine cervix measures 0.5 centimeter likely represent nabothian cyst. Vagina: Unremarkable. Fibroids: Multiple large soft tissue mass lesion in the uterus likely represent fibroid. The largest presumed fibroid seen at the posterior uterine wall measures up to 9 centimeter in the transverse diameter 11 centimeter in the longitudinal diameter and 7.6 centimeter in the AP diameter demonstrate heterogeneous signal with foci of hyperintense T2 signal. The possibility of malignant degeneration is not totally excluded. OVARIES/ ADNEXA: Right ovary: Not clearly visualized. Left ovary: Not clearly visualized. Fallopian tubes: Not visualized. No evidence of hydrosalpinx. BOWEL: Partially visualized rectosigmoid colon is grossly unremarkable. LYMPH NODES: No lymphadenopathy. BLADDER: Unremarkable. FREE FLUID: None. PELVIC BONES: Grossly unremarkable. OTHER FINDINGS: None. IMPRESSION: Suboptimal evaluation without IV contrast administration. The patient declined the IV contrast administration. Heterogeneous moderately enlarged uterus contains multiple soft tissue heterogeneous mass lesion likely represent fibroid. The largest presumed fibroid measures 9 x 11 x 7.6 centimeter. The possibility of malignant degeneration of the fibroid is not totally excluded. Comparison with old study would be helpful to evaluate for rapid increase in the size of the fibroid or other sign of malignant degeneration. The ovaries were not visualized.
[2018-10-12] MEDS ORDERED: Gadodiamide 287 MG/ML VIAL (15ML) IV ONE (15:14)
[2018-10-12] MEDS ORDERED: Sodium Chloride 0.9% 100 ML ONE (15:14)
--- NOTE | 2018-10-12 19:12 | MRI ---
Date of service: 10/12/2018 PROCEDURE: MRI abdomen and MRI pelvis. HISTORY: r/o sarcoma vs peritoneal dz COMPARISON: MRI abdomen 10/11/2018 TECHNIQUE: Limited examination was performed following intravenous gadolinium administration. The remainder of the examination was performed and previously reported on 10/11/2018. Pre and post T1 rapid acquisition breath hold images of the abdomen were acquired pre and post gadolinium administration. Post gadolinium fat sat T1 images were acquired through the pelvis in the axial, sagittal and coronal planes. FINDINGS: No enhancing masses are identified within the liver. Once again, there is a signal void in the inferior right hepatic lobe likely corresponding to coarse calcification. This was not evaluated on prior CT angio chest. However, similar coarse calcification was seen at the posterior dome of the liver associated with signal void on current examination. No biliary dilatation. Smooth contour. Status post cholecystectomy. Minimal splenomegaly. No splenic mass. No enhancing pancreatic mass. No pancreatic ductal dilatation appreciated. No enhancing adrenal mass. Large heterogeneous mass in the left side of the uterus likely fibroid. Cannot rule out leiomyosarcoma on the basis of this examination. This measures roughly 11 cm in diameter. The endometrium is displaced towards the right side. It is normal in width. There is no evident widening of the junctional zone. Additional small fibroids are seen. There is a large portion of this 11 cm mass that enhances following gadolinium administration. Uncertain significance. Nonspecific enhancement is seen in association with uterine fibroids. Probable pedunculated left lower uterine segment fibroid which enhances isointense the majority of the uterus. This measures approximately 4.4 cm in diameter. The ovaries are not identifiable on this examination. There is no evidence of pelvic sidewall lymphadenopathy IMPRESSION: . Limited examination consisting of post gadolinium images. No enhancing hepatic masses. Areas of signal void identified within the right lobe of the liver likely corresponding to coarse calcification as demonstrated in the upper portion of the liver on recent CT angiogram of the chest. Please note that the more inferior area of T1 signal void in the inferior right hepatic lobe shows high T2 signal, of uncertain significance. No associated enhancement following gadolinium administration. Minimal left pleural effusion. Multiple pelvic fibroids, the largest of which measures approximately 11 cm. Cannot rule out leiomyosarcoma on the basis of this examination. Unremarkable endometrium displaced towards the right side by the large uterine fibroid. Pedunculated subserosal lower uterine segment left-sided uterine fibroid.
--- NOTE | 2018-10-13 11:28 | CP.PCM.CON ---
History of Present Illness - History of Present Illness History of Present Illness: called to consult on this pleasant 53 yo who was emergently admitted for sob and mild pleural effusion working diagnosis is viral vs autoimmune workup revealed elevated ca125 pt was evaluated for fibroids 1 year ago large uterine fibroid by mri in oct 2017 pt has mass effect and bladded and bolel symptoms maniopausal for 4 years Past Patient History - Past Medical History & Family History Past Medical History?: No - Past Social History Smoking Status: Never Smoked - CARDIAC Hx Cardiac Disorders: No - PULMONARY Hx Respiratory Disorders: No - NEUROLOGICAL Hx Neurological Disorder: No - HEENT Hx HEENT Problems: No - RENAL Hx Chronic Kidney Disease: No - ENDOCRINE/METABOLIC Hx Endocrine Disorders: No - HEMATOLOGICAL/ONCOLOGICAL Hx Blood Disorders: No - INTEGUMENTARY Hx Dermatological Problems: No - MUSCULOSKELETAL/RHEUMATOLOGICAL Hx Musculoskeletal Disorders: No - GASTROINTESTINAL Hx Gastrointestinal Disorders: No - GENITOURINARY/GYNECOLOGICAL Hx Genitourinary Disorders: No - PSYCHIATRIC Hx Psychophysiologic Disorder: No - SURGICAL HISTORY Hx Surgeries: No - ANESTHESIA Hx Anesthesia: No Hx Anesthesia Reactions: No Hx Malignant Hyperthermia: No Has any member of the family had a problem w/ anesthesia?: No Meds Allergies/Adverse Reactions: Allergies Allergy/AdvReac Type Severity Reaction Status Date / Time chocolate flavor Allergy URTICARIA Verified 10/09/18 13:14 pineapple Allergy URTICARIA Verified 10/09/18 13:14 strawberry Allergy URTICARIA Verified 10/09/18 13:14 - Medications Medications: Current Medications Acetaminophen (Tylenol 325mg Tab) 650 mg PO Q6 PRN PRN Reason: Pain, Mild (1-3) Last Admin: 10/12/18 04:15 Dose: 650 mg Acetaminophen (Tylenol 325mg Tab) 650 mg PO Q6 PRN PRN Reason: Fever >100.4 F Last Admin: 10/11/18 20:30 Dose: 650 mg Famotidine (Pepcid) 20 mg PO BID [facility] Last Admin: 10/13/18 09:53 Dose: 20 mg Guaifenesin (Robitussin) 200 mg PO Q6 PRN PRN Reason: Cough Last Admin: 10/12/18 09:06 Dose: 200 mg Ibuprofen (Motrin Tab) 600 mg PO Q8@0400,1200,2000 [facility] Last Admin: 10/13/18 10:08 Dose: 600 mg Ketorolac Tromethamine (Toradol) 15 mg IVP Q6 PRN PRN Reason: Pain, moderate (4-7) Last Admin: 10/12/18 21:11 Dose: 15 mg Ketorolac Tromethamine (Toradol) 15 mg IM Q6 PRN PRN Reason: Pain, moderate (4-7) Results - Vital Signs Recent Vital Signs: Last Vital Signs Temp 97.7 F 10/13/18 08:22 Pulse 75 10/13/18 08:22 Resp 20 10/13/18 08:22 BP 96/63 L 10/13/18 08:22 Pulse Ox 96 10/13/18 08:22 - Labs Result Diagrams: 10/09/18 15:11 10/09/18 15:11 Labs: Laboratory Results - last 24 hr 10/10/18 05:45 RAI Screen Positive H RAI Titer 1:80 H RAI Titer 2 TEST NOT PERFORMED RAI Pattern Nucleolar H RAI Pattern 2 TEST NOT PERFORMED - Impressions Impression: pelvic mass repeat evaluation by mri cannot rule out sarcoma , al;[facility] [employer] martineztheless will need follow up pleural symptoms may be related to possible lupus needs outpatient rheumatology foolow up Assessment & Plan - Assessment and Plan (Free Text) Assessment: uterine fibroid , stable in size but sympotomatic low lilkelyhood of sarcoma ui would recommend surgery once stabilized medically Plan: will manage as outpatinet once mendical is stabilized - Date & Time Date: 10/13/18 Time: 11:31
--- NOTE | 2018-10-13 12:20 | CP.PCM.PN ---
Subjective - Date & Time of Evaluation Date of Evaluation: 10/13/18 Time of Evaluation: 12:23 - Subjective Subjective: amended consult Objective - Vital Signs/Intake and Output Vital Signs (last 24 hours): Temp Pulse Resp BP Pulse Ox 97.7 F 75 20 96/63 L 96 10/13/18 08:22 10/13/18 08:22 10/13/18 08:22 10/13/18 08:22 10/13/18 08:22 - Medications Medications: Current Medications Acetaminophen (Tylenol 325mg Tab) 650 mg PO Q6 PRN PRN Reason: Pain, Mild (1-3) Last Admin: 10/12/18 04:15 Dose: 650 mg Acetaminophen (Tylenol 325mg Tab) 650 mg PO Q6 PRN PRN Reason: Fever >100.4 F Last Admin: 10/11/18 20:30 Dose: 650 mg Famotidine (Pepcid) 20 mg PO BID [facility] Last Admin: 10/13/18 09:53 Dose: 20 mg Guaifenesin (Robitussin) 200 mg PO Q6 PRN PRN Reason: Cough Last Admin: 10/12/18 09:06 Dose: 200 mg Ibuprofen (Motrin Tab) 600 mg PO Q8@0400,1200,2000 [facility] Last Admin: 10/13/18 10:08 Dose: 600 mg Ketorolac Tromethamine (Toradol) 15 mg IM Q6 PRN PRN Reason: Pain, moderate (4-7) - Labs Labs: 10/09/18 15:11 10/09/18 15:11 Assessment and Plan - Assessment and Plan (Free Text) Assessment: addendum to my consultation i obtained the report of prior MRI and it reporterd fibroid at 9 cm in largest diameter yesterday''s mri 11 cm so there appears to be signifificant interval change patient is not stable enough for surgery at this time will need to be stabilized at a pulmonary level outpatint then i recommend surgical intervention Plan: rfollow up with me next week number kyaen also to see english instructor referral fiven for dr ricardo Mock
[2018-10-13 16:01] VITALS: BP 100/65; PULSE 94; RESP 16; TEMP 98.2
[2018-10-13 18:50] VITALS: O2SAT 98
--- NOTE | 2018-10-13 23:43 | CP.PCM.PN ---
Subjective - Date & Time of Evaluation Date of Evaluation: 10/11/18 Time of Evaluation: 17:05 Objective - Vital Signs/Intake and Output Vital Signs (last 24 hours): Temp Pulse Resp BP Pulse Ox 98.2 F 94 H 16 100/65 98 10/13/18 16:00 10/13/18 16:00 10/13/18 16:00 10/13/18 16:00 10/13/18 18:50 - Labs Labs: 10/09/18 15:11 10/09/18 15:11 Assessment and Plan (1) Pleuritic chest pain Status: Acute (2) Dyspnea Status: Acute (3) Pericardial effusion Status: Acute (4) Pleural effusion, bilateral Status: Acute
--- NOTE | 2018-10-13 23:44 | CP.PCM.PN ---
Subjective - Date & Time of Evaluation Date of Evaluation: 10/12/18 Time of Evaluation: 17:10 Objective - Vital Signs/Intake and Output Vital Signs (last 24 hours): Temp Pulse Resp BP Pulse Ox 98.2 F 94 H 16 100/65 98 10/13/18 16:00 10/13/18 16:00 10/13/18 16:00 10/13/18 16:00 10/13/18 18:50 - Labs Labs: 10/09/18 15:11 10/09/18 15:11 Assessment and Plan (1) Pleuritic chest pain Status: Acute (2) Dyspnea Status: Acute (3) Pericardial effusion Status: Acute (4) Pleural effusion, bilateral Status: Acute
--- NOTE | 2018-10-13 23:46 | CP.PCM.DIS ---
Provider - Provider Date of Admission: 10/09/18 18:53 Attending physician: Griselda Swain MD Consults: 10/09/18 18:53 Cardiology Consult Stat Comment: Consulting Provider: Dio Mcgee V Consulting Physician: Dio Mcgee V Reason for Consult: pericardial effusoin Pulmonology Consult Stat Comment: Consulting Provider: Raffy Omer I Consulting Physician: Raffy Omer I Reason for Consult: pleural effusions bilater 10/11/18 13:13 Gynocology [MANUFACTURING LEAD Consult] Routine Comment: Consulting Provider: Markel Sarah Consulting Physician: Markel Sarah Reason for Consult: uterine mass, r/o myometrial neoplasm, elevated ca 125 Time Spent in preparation of Discharge (in minutes): 35 Diagnosis - Discharge Diagnosis (1) Pleuritic chest pain Status: Acute (2) Dyspnea Status: Acute (3) Pericardial effusion Status: Acute (4) Pleural effusion, bilateral Status: Acute Priority: High (5) Inflammation Status: Acute Priority: Medium (6) Elevated antinuclear antibody (RAI) level Status: Acute Priority: High Hospital Course - Lab Results Lab Results: Micro Results 10/11/18 20:28 Blood-Venous Blood Culture - Preliminary NO GROWTH AFTER 48 HOURS 10/12/18 00:19 Urine,Clean Catch Urine Culture - Final No Growth (<1,000 CFU/ML) Most Recent Lab Values WBC 10.2 K/uL (4.8-10.8) 10/09/18 15:11 RBC 4.06 Mil/uL (3.80-5.20) 10/09/18 15:11 Hgb 11.6 g/dL (12.0-16.0) L 10/09/18 15:11 Hct 34.7 % (34.0-47.0) 10/09/18 15:11 MCV 85.5 fl (81.0-99.0) 10/09/18 15:11 MCH 28.7 pg (27.0-31.0) 10/09/18 15:11 MCHC 33.5 g/dL (33.0-37.0) 10/09/18 15:11 RDW 12.6 % (11.5-14.5) 10/09/18 15:11 Plt Count 317 K/uL (130-400) 10/09/18 15:11 MPV 11.5 fl (7.2-11.7) 10/09/18 15:11 Neut % (Auto) 70.9 % (50.0-75.0) 10/09/18 15:11 Lymph % (Auto) 17.9 % (20.0-40.0) L 10/09/18 15:11 [place] % (Auto) 8.9 % (0.0-10.0) 10/09/18 15:11 Eos % (Auto) 1.6 % (0.0-4.0) 10/09/18 15:11 Baso % (Auto) 0.7 % (0.0-2.0) 10/09/18 15:11 Neut # (Auto) 7.2 K/uL (1.8-7.0) H 10/09/18 15:11 Lymph # (Auto) 1.8 K/uL (1.0-4.3) 10/09/18 15:11 [place] # (Auto) 0.9 K/uL (0.0-0.8) H 10/09/18 15:11 Eos # (Auto) 0.2 K/uL (0.0-0.7) 10/09/18 15:11 Baso # (Auto) 0.1 K/uL (0.0-0.2) 10/09/18 15:11 ESR 88 mm/hr (0-30) H 10/10/18 05:45 D-Dimer, Quantitative 4128 ng/mlDDU (0-230) H 10/09/18 15:55 Sodium 138 mmol/l (132-148) 10/09/18 15:11 Potassium 4.0 MMOL/L (3.6-5.0) 10/09/18 15:11 Chloride 102 mmol/L (98-107) 10/09/18 15:11 Carbon Dioxide 28 mmol/L (22-30) 10/09/18 15:11 Anion Gap 12 (10-20) 10/09/18 15:11 BUN 11 mg/dl (7-17) 10/09/18 15:11 Creatinine 0.6 mg/dl (0.7-1.2) L 10/09/18 15:11 Est GFR ( Amer) > 60 10/09/18 15:11 Est GFR (Non-Af Amer) > 60 10/09/18 15:11 Random Glucose 115 mg/dL (65-105) H 10/09/18 15:11 Uric Acid 3.8 mg/Dl (2.2-7.5) 10/10/18 05:45 Calcium 8.8 mg/dL (8.4-10.2) 10/09/18 15:11 Troponin I < 0.0120 ng/mL (0.00-0.120) 10/12/18 04:45 C-Reactive Protein 183.80 mg/L (0.0-9.9) H 10/10/18 05:45 NT-Pro-B Natriuret Pep 138 pg/ml (0-900) 10/09/18 15:11 Amylase 56 U/L (30-110) 10/12/18 04:25 Lipase 34 U/L (23-300) 10/12/18 04:25 Alpha Fetoprotein 0.9 IU/mL (0.0-7.22) 10/10/18 05:45 Carcinoembryonic Ag 1.0 ng/mL (0-3.0) 10/10/18 05:45 CA 19-9 Antigen 4.5 U/mL (0-37) 10/10/18 05:45 CA 125 Antigen 60.6 U/mL (0-35) H 10/10/18 05:45 TSH 3rd Generation 2.22 mIU/ML (0.46-4.68) 10/10/18 05:45 RAI Screen Positive (Negative) H 10/10/18 05:45 RAI Titer 1:80 Titer (<1:40) H 10/10/18 05:45 RAI Titer 2 TEST NOT PERFORMED 10/10/18 05:45 RAI Pattern Nucleolar H 10/10/18 05:45 RAI Pattern 2 TEST NOT PERFORMED 10/10/18 05:45 TB Test (QFT) Nil 0.14 IU/mL 10/10/18 05:45 TB Test Mitogen - Nil 6.31 IU/mL 10/10/18 05:45 TB Test TB - Nil <0.00 IU/mL 10/10/18 05:45 TB Test (T-Spot) Negative (Negative) 10/10/18 05:45 Discharge Exam - Head Exam Head Exam: ATRAUMATIC, NORMAL INSPECTION Discharge Plan - Discharge Medications Prescriptions: Naproxen 500 mg PO BID #20 tab Pantoprazole Sodium [Protonix] 40 mg PO DAILY #30 ect - Follow Up Plan Condition: FAIR Disposition: HOME/ ROUTINE Instructions: Pleural Effusion Additional Instructions: PLEASE FOLLOW UP WITH FISH HATCHERY MAN, SENIOR COMPENSATION ANALYST, SURVEILLANCE INVESTIGATOR, EMERY GRINDER
== END 2018-10-13 18:40 | disposition home or self-care (01) | DRG 315 ==
LOC: H.ER 13:04 → H.ERHOLD 18:53 → H.TEL 10-10 09:32
PROVIDERS: ADMIT Internal Medicine; ATTEND Internal Medicine
DX: I30.1 Infective pericarditis (principal); J98.11 Atelectasis; J90 Pleural effusion, not elsewhere classified; R97.1 Elevated cancer antigen 125 [CA 125]; R79.1 Abnormal coagulation profile; D25.9 Leiomyoma of uterus, unspecified